=== PATIENT | male | born 1995 | race Caucasian/White ===

== ENCOUNTER 2019-08-28 01:09 | Emergency (ER) | payer SELFPAY ==
[~2019-08-28] VITALS: Ht 177.8 cm; Wt 68.0 kg
[~2019-08-28 01:09] MED LIST: INHALER INH
--- NOTE | 2019-08-28 02:00 | NUR ---
Dr. Guo at bedside for MSE
--- NOTE | 2019-08-28 02:05 | NUR ---
Patient ambulating with steady gait. A&O x4. Pt c/o laceration above left eye lid x 2 hours after falling off a stool denies loc. no perfused bleeding noted. patient able to move eyelid. Breathing even and unlabored. Denies any / GI distress
[2019-08-28] MEDS ORDERED: ONDANSETRON ODT 4 MG TAB.RAPDIS ONE (02:10)
[2019-08-28] MEDS ORDERED: TDAP DIPH,PERTUSS,TET VAC/PF 0.5 ML DISP.SYRIN IM ONE ×2 (02:12→02:15)
[2019-08-28] MEDS ORDERED: LIDOCAINE 1%-EPI 1:100,000 20 ML VIAL TP ONE (02:15)
[2019-08-28] MEDS ORDERED: ONDANSETRON ODT 4 MG TAB.RAPDIS SL ONE (02:15)
--- NOTE | 2019-08-28 02:40 | NUR ---
Patient taken to CT scan
--- NOTE | 2019-08-28 02:50 | NUR ---
Patient back from CT scan
--- NOTE | 2019-08-28 02:59 | NUR ---
Dr. Guo at bedside for suture repair
[2019-08-28] MEDS ORDERED: NEOMY/BACITRA/POLYMYXIN B OINT UD PACKET TP ONE (03:44)
[2019-08-28 03:52] VITALS: BP 118/66
--- NOTE | 2019-08-28 04:00 | NUR ---
Patient discharged to home in stable conditon. Written and verbal after care instructions given. Patient verbalizes understanding of instructions. Patient ambulating with steady gait with family at bedside
== END 2019-08-28 04:00 | disposition home or self-care (01) ==
LOC: ER 01:14
DX: S01.112A Laceration without foreign body of left eyelid and periocular area, initial encounter (principal); J45.909 Unspecified asthma, uncomplicated; F17.210 Nicotine dependence, cigarettes, uncomplicated; Z79.899 Other long term (current) drug therapy; W01.198A Fall on same level from slipping, tripping and stumbling with subsequent striking against other object, initial encounter; Y93.89 Activity, other specified; Y92.89 Other specified places as the place of occurrence of the external cause; Y99.8 Other external cause status
CPT/HCPCS: 70450; 90715; A4217; A4663; Q0162